=== PATIENT | female | born 1960 | race Caucasian/White ===

== ENCOUNTER 2020-11-30 10:19 | Inpatient (IN) | payer OTHER ==
[~2020-11-30] VITALS: Ht 167.6 cm; Wt 79.6 kg
[2020-11-30] MEDS ORDERED: OMNIPAQUE 350 MG/ML, 100ML BOTTLE ONE (10:30)
--- NOTE | 2020-11-30 10:30 | NUR ---
[facility] PER EMS, STAFF STATES PT HAD A SUDDEN ONSET OF LT SIDED FACIAL DROOP WELL SLURRED SPEECH STARTING AT 0830AM. WHEN PT ARRIVED TO ER, SLIGHT LT SIDED FACIAL DROOP NOTED WELL SOME SLURRED SPEECH AND APHASIA. PT TAKEN TO CT, IV X2 STARTED. AWAITING RESULTS.
--- NOTE | 2020-11-30 10:45 | NUR ---
NEUROLOGY ON TELE ROBOT FOR ASSESSMENT. NO TPA INDICATED PER NEUROLOGIST. PT REMAINS ON MONITORS, VSS, PROTECTING OWN AIRWAY WELL.
[2020-11-30 10:54] LABS: BASOPHILS % (AUTO) 1 % (0-1); EOSINOPHILS % (AUTO) 2 % (1-7); LYMPHOCYTES % (AUTO) 22 % (22-44); MEAN CORPUSCULAR HEMOGLOBIN 29.1 pg (27.0-34.8); MEAN CORPUSCULAR HGB CONC 33.6 g/dL (32.4-35.8); MEAN PLATELET VOLUME 8.8 fL (7.4-10.4); MONOCYTES % (AUTO) 10 % (2-9); NEUTROPHILS % (AUTO) 65 % (42-75); PLATELET COUNT 183 x10^3/uL (130-400); RED CELL DISTRIBUTION WIDTH 14.5 % (9.6-15.2)
--- NOTE | 2020-11-30 11:00 | NUR ---
PT PLACED ON BED GOMEZ PER PT REQUEST. PT REPOSITIONED IN BED FOR COMFORT. PT REMAINS ON MONITORS, VSS. PT ABLE TO ANSWER ALL QUESTIONS AT THIS TIME, SPEECH REMAINS SLIGHTLY SLURRED. CONT TO MONITOR.
[2020-11-30 11:09] LABS: INTERNATIONAL NORMALIZED RATIO 1.01 (0.93-1.1); PROTHROMBIN TIME 10.8 Seconds (9.6-11.5)
--- NOTE | 2020-11-30 11:44 | NUR ---
REPORT TO CRISTIAN RUBIO. SWALLOW SCREEN COMPLETED.
[2020-11-30] MEDS ORDERED: ASPIRIN 81 MG TABLET CHEW ONE (11:48)
[2020-11-30] MEDS ORDERED: ASPIRIN 325 MG TABLET ONE (11:52)
[2020-11-30] MEDS ORDERED: ASPIRIN 325 MG TABLET PO ONE (12:00)
--- NOTE | 2020-11-30 12:07 | NUR ---
IVON CUEVAS ([facility]) [phone]
[2020-11-30] MEDS ORDERED: AMLO-211 PO (12:10)
[2020-11-30] MEDS ORDERED: ATOR20TA37 PO (12:11)
[2020-11-30] MEDS ORDERED: ASPI-963 PO (12:11)
[2020-11-30] MEDS ORDERED: DONE5TAB14 PO (12:12)
[2020-11-30] MEDS ORDERED: FLUO40CA2 PO (12:12)
[2020-11-30] MEDS ORDERED: LISI-170 PO (12:13)
[2020-11-30] MEDS ORDERED: OXYB5TAB10 PO (12:14)
--- NOTE | 2020-11-30 12:20 | NUR ---
PUREWICK IN PLACE FOR FREQUENT URINATION
[2020-11-30] MEDS ORDERED: BACLOFEN 10 MG TABLET PO PRN (12:30)
[2020-11-30] MEDS ORDERED: GUAIFENESIN/DM 200-20MG, 10ML UDC PO PRN (12:30)
[2020-11-30] MEDS ORDERED: BUTALB/APAP/CAFFEINE 50MG/325MG/40MG PO PRN ×2 (12:30)
[2020-11-30] MEDS ORDERED: hydrALAzine 20 MG/ML, 1ML IVPush PRN (12:30)
[2020-11-30] MEDS ORDERED: ONDANSETRON ODT 4 MG PO PRN (12:30)
[2020-11-30] MEDS ORDERED: ASPIRIN 81 MG TABLET CHEW PO ONE (12:30)
[2020-11-30] MEDS ORDERED: ONDANSETRON 2MG/ML, 2ML IVPush PRN (12:30)
--- NOTE | 2020-11-30 12:33 | NUR ---
PT OFF THE FLOOR TO RADIOLOGY
[2020-11-30] MEDS ORDERED: CLOPIDOGREL 75 MG TABLET ONE (12:41)
[2020-11-30 12:54] LABS: TROPONIN I < 0.015 ng/mL (0.000-0.045)
--- NOTE | 2020-11-30 13:08 | NUR ---
PHOE REPORT TO RAMIRO BRYANT
[2020-11-30 13:46] VITALS: BP 159/98
[2020-11-30 14:02] LABS: MICROSCOPIC NOT IND
[2020-11-30] MEDS: CLOPIDOGREL 75 MG TABLET PO SCH (14:03)
[2020-11-30 16:38] VITALS: BP 135/89
[2020-11-30 18:34] VITALS: BP 145/99
[2020-11-30 19:15] VITALS: BP 135/83
[2020-11-30] MEDS: MELATONIN 5 MG TABLET PO SCH (21:18)
[2020-11-30 22:36] VITALS: BP 118/90
[2020-12-01] VITALS (7 sets, daily range): BP systolic 120–148; BP diastolic 75–92
[2020-12-01 04:09] LABS: BASOPHILS % (AUTO) 1 % (0-1); EOSINOPHILS % (AUTO) 3 % (1-7); LYMPHOCYTES % (AUTO) 22 % (22-44); MEAN CORPUSCULAR HEMOGLOBIN 29.4 pg (27.0-34.8); MEAN CORPUSCULAR HGB CONC 33.9 g/dL (32.4-35.8); MEAN PLATELET VOLUME 8.9 fL (7.4-10.4); MONOCYTES % (AUTO) 11 % (2-9); NEUTROPHILS % (AUTO) 63 % (42-75); PLATELET COUNT 200 x10^3/uL (130-400); RED BLOOD COUNT 4.72 x10^6/uL (3.82-5.3); RED CELL DISTRIBUTION WIDTH 14.9 % (9.6-15.2)
[2020-12-01 04:10] LABS: ALANINE AMINOTRANSFERASE 18 U/L (12-78); ALBUMIN 3.6 g/dL (3.4-5.0); ANION GAP 7 mmol/L (5-15); CHLORIDE 106 mmol/L (98-107); CREATININE 1.11 mg/dL (0.55-1.02)
[2020-12-01 04:16] LABS: ALKALINE PHOSPHATASE 113 U/L (45-117); BILIRUBIN,TOTAL 0.7 mg/dL (0.2-1.0); CHOL/HDL RATIO 2.1; CHOLESTEROL, TOTAL 181 mg/dL (140-239); HDL CHOL % 47 % (28-40); HDL CHOLESTEROL (DIRECT) 85 mg/dL (40-60); LDL CHOLESTEROL,CALCULATED 84 mg/dL (54-169); TOTAL PROTEIN 7.7 g/dL (6.4-8.2); TRIGLYCERIDES 60 mg/dL (50-200); VLDL CHOLESTEROL 12 mg/dL (0-25)
[2020-12-01] MEDS ORDERED: ASPIRIN 81 MG TABLET CHEW PO SCH (06:00)
[2020-12-01] MEDS: SENNA/DOCUSATE TABLET PO SCH (08:33)
[2020-12-01] MEDS: CLOPIDOGREL 75 MG TABLET PO SCH (08:34)
[2020-12-01] MEDS ORDERED: ATORVASTATIN 80 MG TABLET PO SCH (21:00)
[2020-12-01] MEDS: MELATONIN 5 MG TABLET PO SCH (21:33)
[2020-12-02 02:37] VITALS: BP 142/90
[2020-12-02] MEDS ORDERED: ASPIRIN 81 MG TABLET EC PO SCH (06:00)
[2020-12-02 06:30] VITALS: BP 138/87
[2020-12-02] MEDS: CLOPIDOGREL 75 MG TABLET PO SCH (08:03)
[2020-12-02] MEDS: SENNA/DOCUSATE TABLET PO SCH (08:03)
[2020-12-02] MEDS ORDERED: ASPI81TA45 PO (08:04)
[2020-12-02] MEDS ORDERED: CLOP75TA PO (08:04)
[2020-12-02] MEDS ORDERED: ATOR-2 PO (08:04)
== END 2020-12-02 16:05 | disposition home health service (06) | DRG 66 ==
LOC: ED 12:11 → EDIP 12:37 → 4WST 14:00
PROVIDERS: ADMIT Family Medicine; ATTEND Family Medicine
PROC: 0T9B30Z Drainage of Bladder with Drainage Device, Percutaneous Approach (ICD-10-PCS; principal; 2020-11-30)
DX: I63.9 Cerebral infarction, unspecified (principal); I73.9 Peripheral vascular disease, unspecified; I10 Essential (primary) hypertension; R47.01 Aphasia; R32 Unspecified urinary incontinence; F32.9 Major depressive disorder, single episode, unspecified; R47.1 Dysarthria and anarthria; R27.0 Ataxia, unspecified; R29.703 NIHSS score 3; Z86.73 Personal history of transient ischemic attack (TIA), and cerebral infarction without residual deficits; Z79.02 Long term (current) use of antithrombotics/antiplatelets; Z82.3 Family history of stroke; Z83.3 Family history of diabetes mellitus
CPT/HCPCS: 36415; 70450; 70496; 70498; 70551; 80047; 80053; 80061; 81003; 83735; 84484; 85025; 85610; 85730; 93005; 93306; 99285; G0378; Q9967; 92523-GN

== ENCOUNTER 2020-12-08 03:46 | Emergency (ER) | payer OTHER ==
[~2020-12-08] VITALS: Ht 154.9 cm; Wt 81.9 kg
[~2020-12-08 03:46] MED LIST: AMLO-211 PO; ASPI-963 PO; ASPI81TA45 PO; ATOR-2 PO; ATOR20TA37 PO; CLOP75TA PO; DONE5TAB14 PO; FLUO40CA2 PO; LISI-170 PO; OXYB5TAB10 PO
[2020-12-08] MEDS ORDERED: FAMOTIDINE 20 MG/2 ML ONE (03:56)
[2020-12-08] MEDS ORDERED: ONDANSETRON 2MG/ML, 2ML ONE (03:56)
[2020-12-08] MEDS ORDERED: SODIUM CHLORIDE FLUSH 10ML SYR IVF ONE (04:00)
[2020-12-08] MEDS ORDERED: ONDANSETRON 2MG/ML, 2ML IVPush ONE (04:00)
[2020-12-08] MEDS ORDERED: SODIUM CHLORIDE 0.9% 1,000ML IVBOLUS ONE (04:00)
[2020-12-08] MEDS ORDERED: FAMOTIDINE 20 MG/2 ML IVPush ONE (04:00)
[2020-12-08 04:20] LABS: BASOPHILS % (AUTO) 1 % (0-1); EOSINOPHILS % (AUTO) 3 % (1-7); LYMPHOCYTES % (AUTO) 25 % (22-44); MEAN CORPUSCULAR HEMOGLOBIN 29.2 pg (27.0-34.8); MEAN CORPUSCULAR HGB CONC 34.1 g/dL (32.4-35.8); MEAN PLATELET VOLUME 9.8 fL (7.4-10.4); MONOCYTES % (AUTO) 10 % (2-9); NEUTROPHILS % (AUTO) 61 % (42-75); PLATELET COUNT 180 x10^3/uL (130-400); RED BLOOD COUNT 4.29 x10^6/uL (3.82-5.3); RED CELL DISTRIBUTION WIDTH 14.6 % (9.6-15.2)
[2020-12-08 04:27] LABS: ALBUMIN 3.5 g/dL (3.4-5.0); ANION GAP 6 mmol/L (5-15); CALCIUM 9.4 mg/dL (8.5-10.1); CHLORIDE 105 mmol/L (98-107)
[2020-12-08 04:31] LABS: ALANINE AMINOTRANSFERASE 14 U/L (12-78); ALKALINE PHOSPHATASE 103 U/L (45-117); BILIRUBIN,TOTAL 0.9 mg/dL (0.2-1.0); CREATININE 1.66 mg/dL (0.55-1.02); TOTAL PROTEIN 7.5 g/dL (6.4-8.2)
[2020-12-08 04:51] VITALS: BP 100/58
--- NOTE | 2020-12-08 04:58 | NUR ---
pATIENT WANTING TO LEAVE AMA. pATIENT STATES THAT SHE DOES NOT WANT TO BE AT THE HOSPITAL. FAMILIA WALKER AT THE BEDSIDE EXPLAINING POSSIBLE BENEFITS OF STAYING AND CONSEQUENCES OF LEAVING HOSPITAL WITHOUT RECEIVING MEDICAL CARE. PATIENT INSISTENT ON LEAVING ER. Addendum: 12/08/20 at 0459 by [email or web address] AMA FORM SIGNED BY PATIENT.
--- NOTE | 2020-12-08 06:22 | NUR ---
Son came to berry picker mother from ER. When son came to ER, he stated that he felt as if she should stay at the ER to be evaluated further. He states that she is not her normal self and should be re-evaluated by the physician again. Family member informed that she would have to be brought back out to the ED lobby to be registered again because she was already evaluated and patient signed out AMA. Family member understood what RN stated and was satisifed with explanation. Family member discussed this option with patient and the conclusion was that she did not want to be at the ER. Family member accepted this answer and patient wheeled out to front of the ED and assisted patient into the vehicle.
== END 2020-12-08 06:26 | disposition left against medical advice (07) ==
LOC: ED 05:31
DX: R19.7 Diarrhea, unspecified (principal); R10.9 Unspecified abdominal pain; I44.4 Left anterior fascicular block; Z86.73 Personal history of transient ischemic attack (TIA), and cerebral infarction without residual deficits
CPT/HCPCS: 36415; 80053; 83690; 85025; 93005; 96361; 96374; 99284; J2405; J7030

== ENCOUNTER 2020-12-17 19:00 | Emergency (ER) | payer OTHER ==
[~2020-12-17] VITALS: Ht 165.1 cm; Wt 65.0 kg
[2020-12-17 19:38] LABS: BASOPHILS % (AUTO) 1 % (0-1); EOSINOPHILS % (AUTO) 2 % (1-7); LYMPHOCYTES % (AUTO) 22 % (22-44); MEAN CORPUSCULAR HEMOGLOBIN 29.1 pg (27.0-34.8); MEAN PLATELET VOLUME 9.3 fL (7.4-10.4); MONOCYTES % (AUTO) 9 % (2-9); NEUTROPHILS % (AUTO) 66 % (42-75); PLATELET COUNT 192 x10^3/uL (130-400); RED BLOOD COUNT 4.25 x10^6/uL (3.82-5.3); RED CELL DISTRIBUTION WIDTH 14.6 % (9.6-15.2)
--- NOTE | 2020-12-17 19:42 | NUR ---
BLADDER SCANNER HIGHEST VALUE IS 109ML
--- NOTE | 2020-12-17 19:42 | NUR ---
[facility]. PT CANNOT RETURN UNTIL THEY OPEN AT 0730AM TOMORROW. FACILITY IS LOCKED. PT C/O OF URINARY RETENTION SINCE 0900AM. DENIES FEVER/CHILLS, N/V, CP, SOB PT A&OX4, BREATHING EVEN AND UNLABORED. NADN. ATTACHED MONITORS, VSS, TAKES PLAVIX AND ASA WCTM. BED IN LOW, RAILS ENGAGED, CALL LIGHT ON LAP.
[2020-12-17 20:01] LABS: ALANINE AMINOTRANSFERASE 13 U/L (12-78); ALBUMIN 3.8 g/dL (3.4-5.0); ANION GAP 8 mmol/L (5-15); CALCIUM 9.2 mg/dL (8.5-10.1); CHLORIDE 107 mmol/L (98-107); CREATININE 1.44 mg/dL (0.55-1.02)
[2020-12-17 20:03] LABS: ALKALINE PHOSPHATASE 101 U/L (45-117); BILIRUBIN,TOTAL 0.6 mg/dL (0.2-1.0); TOTAL PROTEIN 7.3 g/dL (6.4-8.2)
--- NOTE | 2020-12-17 20:09 | NUR ---
PT STRAIGHT CATH WITH TERRENCE RN HEDIS. PT TOLERATED WELL. CINSERTED AND PERFORMED CLEANING CARE TO HSOPITAL PROTOCOL VSS. NADN. PT RESTING IN BED WATCHING TV. WCTM
[2020-12-17 20:22] LABS: MICROSCOPIC AUTO
--- NOTE | 2020-12-17 20:51 | NUR ---
[facility] [address] [phone]
--- NOTE | 2020-12-17 20:53 | NUR ---
LATE ENTRY. PROVIDER CANCELLED F/C DUE TO SCANT AMOUNT OF URINE IN BLADDER.
--- NOTE | 2020-12-17 20:54 | NUR ---
Patient is resting comfortably in bed. Bed in lowest, rails engaged, call light on lap. Vital Signs within normal limits. WCTM.
--- NOTE | 2020-12-17 20:55 | NUR ---
CASSIUS COY [facility] WAS DIRECTED TO VOICEMAIL AND INSTRUCTED TO LEAVE EMAIL AND I SHAISTA BE CONTACTED THE NEXT DAY.
--- NOTE | 2020-12-17 21:21 | NUR ---
PT MEDICALLY CLEARED BY ERMD. HAVE NOT BEEN ABLE TO GET [facility] OF [facility], WILL ATTEMPT TO KEEP TRYING PT RESTING IN BED WATCHING TV. NADN. VSS. A&OX4, BREATHING EVEN AND UNLABORED. WCTM
--- NOTE | 2020-12-17 22:30 | NUR ---
LATE ENTRY DUE TO PT CARE. PT BECAME INCONTINEN AND URINATED SELF. WET CLOTHES PUT INTO BAG. PT CLEANSED AND APPLIED BLUE MEDIUM SCRUBS AND BREIF.
--- NOTE | 2020-12-17 22:34 | NUR ---
SPOKE TO IVON CUEVAS ABOUT TRYING TO GET PT HOME. IVON STATED HE IS IN [place] AND CANNOT HELP AT THIS MOMENT IVON STATED THAT THOMAS MAY HAVE CODE TO GET BACK INTO FACILITY BUT DOES NOT KNOW IF HER DOOR IS LOCKED OR NOT.
--- NOTE | 2020-12-17 23:28 | NUR ---
PT AMBULATED TO BATHROOM WITH FWW WITH STEADY GAIT TO BATHROOM AND BACK TO ROOM. PT TOLERATED WELL. PT BACK IJN ROOM ATTACHED TO MONITORS. GREGOR. FAMILIA
--- NOTE | 2020-12-17 23:59 | NUR ---
Patient/Caregiver given discharge instructions and they have confirmed that they understand the instructions. Patient ambulatory with steady gait WITH FWW. NAD, all questions answered appropriately, denies additional needs at this time. No personal belongings left in room after discharge. PT TAKEN HOME VIA [facility].
[2020-12-18] VITALS: BP 132/82
== END 2020-12-18 00:02 | disposition home or self-care (01) ==
LOC: ED 21:21
DX: E86.0 Dehydration (principal); I12.9 Hypertensive chronic kidney disease with stage 1 through stage 4 chronic kidney disease, or unspecified chronic kidney disease; N18.9 Chronic kidney disease, unspecified
CPT/HCPCS: 36415; 80053; 81001; 85025; 87086; 99284